=== PATIENT | female | born 1995 | race Caucasian/White ===

== ENCOUNTER 2018-06-03 20:37 | Outpatient (CLI) | payer OTHER ==
[~2018-06-03] VITALS: Ht 142.2 cm; Wt 58.1 kg
[2018-06-03 20:30] VITALS: Ht 142.2 cm; Wt 58.1 kg
[~2018-06-03 20:37] MED LIST: PREN1TAB79 PO
--- NOTE | 2018-06-03 20:40 | NSTRPT ---
NST Information Datetime Report Generated by CPN: 06/03/2018 20:40 Datetime: 05/19/2018 13:19 NST Information EGA: 37.1 Test Number: 3 Time on Monitor: 05/19/2018 13:58 Time off Monitor: 05/19/2018 14:20 NST Duration (Min): 22 Reason for NST: Low TSERING Test and Monitor Explained: Monitor Explained; Test Explained; Verbalized Understanding Pulse: 74 Resp: 18 SBP: 98 DBP: 56 Test Evaluation NST Interventions: None Patient States Movement: Present Contraction Frequency: X3-DENIES FEELING FHR Baseline : 145 Variability: Moderate 6-25bpm Accelerations: 15X15 Decelerations: None FHR Category: Category I NST Results: Reactive Comments: To u/s-ATILIO 11 CM, CEPHALIC Electronically Signed By E-Signature: with User ID: [id number] Datetime: 05/12/2018 13:54 NST Information EGA: 36.1 NST Duration (Min): 31 Datetime: 05/02/2018 14:16 NST Information EGA: 34.5 NST Duration (Min): 25
[2018-06-03 20:54] VITALS: BP 99/57; PULSE 79; RESP 18
[2018-06-03] MEDS ORDERED: FERR325T5 PO (21:07)
--- NOTE | 2018-06-04 00:11 | PN ---
Triage Information Date/Time 06/03/18 Reason for visit: antepartum test for low TSERING-A Weeks of Gestation 39w2d /Para Diabetes: none Hypertention: none Objective Vital Signs Date Temp Pulse Resp B/P (MAP) Pulse Ox O2 O2 Flow FiO2 Time Delivery Rate 06/03/18 98.3 79 18 99/57 (71) Room Air 20:54 Heart Rate: 140's Heart Rate Comments CAT I tracing Contractions: >10 Minutes Apart Exam /-3 Results/Medications Imaging Results BPP 8 ATILIO 9.5cm Disposition: Discharge Assessment/Plan A IUP 39w2d low TSERING-A P discharge today IOL on coming tuesday ELEONORA MEJIA MD Jun 04, 2018 00:11
--- NOTE | 2018-06-04 04:10 | TRIAGE ---
OB Triage Datetime Report Generated by CPN: 06/04/2018 04:10 Datetime: 06/03/2018 22:25 Vaginal Exam Dilatation (cms): 1.0 Effacement (%): 60 Station: -3 Exam By: arie chua RN Membrane Status: Intact Datetime: 06/03/2018 21:12 EGA: 39.2 Datetime: 06/03/2018 21:00 Time of Arrival: 06/03/2018 20:30 EGA: 39.2 Arrived By: Ambulatory Arrived From: Home Chief Complaint: came in with orders from Dr. Ashford for BPP, ATILIO, NST Movement: Present Contractions: Denies/Absent Rupture of Membranes: Denies Vaginal Bleeding: None Vaginal Discharge: Denies Recent Sexual Intercouse: Denies Abdominal Trauma: Not Applicable Patient Complaints: None Time Provider Notified: 06/03/2018 22:20 Provider Notified: DELSHAD Initial Plan: NST, BPP, ATILIO Datetime: 06/03/2018 20:54 Stage of : OB Triage Assessment Type: Triage Maternal Assessment Level of Consciousness: Fully Conscious DTR's/Clonus: DTRs 2+; No Clonus Headache: Denies Blurred Vision: No Respiratory Effort: Unlabored; Regular Rhythm; Equal Expansion Breath Sounds, Left: Clear and Equal Breath Sounds, Right: Clear and Equal Nausea/Vomiting: Denies RUQ Epigastric Pain: Denies Facial Edema: None Temperature Route: Oral Fall Risk Assessment History of Falling: (0) No Secondary Diagnosis: (0) No Ambulatory Aid: (0) Bedrest/Nurse Assist IV Therapy: (0) No Gait: (0) Normal/Bedrest/Immobile Mental Status: (0) Oriented to Own Ability Fall Score: 0 Fall Risk Score Definition: No Risk: No action required Pain Assessment Pain Scale: 0 Pain Presence: None/Denies Pain Type: N/A Datetime: 06/03/2018 20:50 Labor Evaluation Monitor Mode: External Heart Rate Monitor Mode: External US Datetime: 06/03/2018 20:47 Stage of : OB Triage
== END 2018-06-03 22:52 | disposition home or self-care (01) ==
LOC: L-D 20:37 → OBT 20:37
PROVIDERS: ATTEND Obstetrics & Gynecology
DX: O28.0 Abnormal hematological finding on antenatal screening of mother (principal); Z3A.39 39 weeks gestation of pregnancy
CPT/HCPCS: 76818; Z7500; G0463

== ENCOUNTER 2018-06-06 08:00 | Inpatient (IN) | payer OTHER ==
[~2018-06-06] VITALS: Ht 137.2 cm; Wt 51.6 kg
[~2018-06-06 08:00] MED LIST changes: +FERR325T5 PO
[2018-06-06 09:17] VITALS: Ht 137.2 cm; Wt 51.6 kg
[2018-06-06] MEDS: LACTATED RINGER'S 1,000 ML IV SCH ×4 (09:26→22:47)
[2018-06-06] MEDS ORDERED: OXYTOCIN 30 UNITS/LR 500 ML IV PRN (09:30)
[2018-06-06] MEDS ORDERED: METHYLERGONOVINE 0.2 MG INJ IM PRN (09:30)
[2018-06-06] MEDS ORDERED: CARBOPROST 250 MCG INJ IM PRN (09:30)
[2018-06-06] MEDS ORDERED: MISOPROSTOL 200 MCG TAB PR PRN (09:30)
[2018-06-06] MEDS ORDERED: LIDOCAINE 1% (MPF) 30 ML INJ INJ PRN (09:30)
[2018-06-06] MEDS ORDERED: OXYTOCIN 30 UNITS/LR 500 ML IV SCH ×3 (09:30→10:00)
[2018-06-06] MEDS ORDERED: BUTORPHANOL 2 MG INJ IV PRN (09:30)
[2018-06-06] MEDS: MISOPROSTOL 50 MCG CAPSULE PO SCH ×4 (09:59→22:00)
--- NOTE | 2018-06-06 10:17 | HP ---
Date/Time of Note Date/Time of Note DATE: 06/06/18 TIME: 10:15 OB - History Hx of Present Chief Complaint: induction of labor Estimated Due Date: Jun 08, 2018 : 2 Para: 1 Spontaneous : 0 Therapeutic : 0 Care: Good Care Ultrasounds: Normal mid trimester US Obstetrical Complications: None Medical Complications: None Past Family/Social History * Past Medical, Surgical, Family and Obstetric Histories reviewed from chart. GBS Status: Negative OB Admission Exam Physical Exam HEENT: WNL Heart: Rhythm Normal Lungs: Clear, Equal Abdomen: WNL Extremities: Normal Reflexes: Normal Cervical Dilatation: 1cm Effacement: 75% Station: -1 Membranes: Intact Heart Rate: 120's Accelerations: Accelerations Present Decelerations: No Decelerations Varibility: Moderate Last 72 hours Lab Results CBC & BMP 06/06/18 08:53 OB Assessment/Plan Reason for admission: induction of labor Plan: Induction Induction Method: per Misoprostol Protocol JACKI STEPHENS MD Jun 06, 2018 10:16
[2018-06-06] MEDS ORDERED: FENTAnyl 2MCG/ML-ROPIV 0.2% 100 ML ONE (22:20)
--- NOTE | 2018-06-06 22:20 | PREAC ---
Date/Time of Note Date/Time of Note DATE: 06/06/18 TIME: 22:18 Anesthesia Eval and Record Evaluation Time Pre-Procedure Interview DATE: 06/06/18 TIME: 22:18 Age 22 Sex female NPO: 8 hrs Preoperative diagnosis LABOR PAIN Planned procedure LABOR EPIDURAL Past Medical History Past Medical History: Includes : : (2), Para: (1), Gestational age: (39 5/7) Surgery & Anesthesia Issues No known issue Meds Anticoagulation: No Beta Beatriz within 24 hr: No Reason Beta Beatriz not given: Pt. not on B-Beatriz Reported Medications Ferrous Sulfate (Ferrous Sulfate) 325 Mg Tablet.dr, 325 MG PO 06/03/18 Vit W-Ca,Fe,FA(<1 mg) ( Vitamins) 1 Each Tablet, 1 EACH PO DAILY, TAB 07/05/15 Current Medications Lactated Ringer's 1,000 ml @ 125 mls/hr Q8H IV Last administered on 06/06/18at 21:38; Admin Dose 125 MLS/HR; Start 06/06/18 at 09:03 Butorphanol Tartrate (Stadol) 2 mg Q2H PRN IV .PAIN; Start 06/06/18 at 09:30 Lidocaine (Xylocaine 1% (Mpf)) 30 ml ONCE PRN INJ .EPISIOTOMY; Start 06/06/18 at 09:30 Oxytocin/Lactated Ringer's 500 ml @ 500 mls/hr ONCE POST IV ; Start 06/06/18 at 09:30 Oxytocin/Lactated Ringer's 500 ml @ 125 mls/hr POST IV ; Start 06/06/18 at 09:30 Oxytocin/Lactated Ringer's 500 ml @ 0 mls/hr ONCE PRN IV .VAGINAL BLEEDING; Start 06/06/18 at 09:30 Methylergonovine Maleate (Methergine) 0.2 mg ONCE PRN IM .VAGINAL BLEEDING; Start 06/06/18 at 09:30 Carboprost Tromethamine (Hemabate) 250 mcg ONCE PRN IM .VAGINAL BLEEDING; Start 06/06/18 at 09:30 Misoprostol (Cytotec) 1,000 mcg ONCE PRN MI .VAGINAL BLEEDING; Start 06/06/18 at 09:30 Misoprostol (Cytotec 50 Mcg Capsule) 50 mcg Q4H PO Last administered on 06/06/18at 18:14; Admin Dose 50 MCG; Start 06/06/18 at 10:00; Stop 06/07/18 at 06:01 Oxytocin/Lactated Ringer's 500 ml @ 0 mls/hr FOR INDUCTION IV ; Start 06/06/18 at 10:00 Meds reviewed: Yes Allergies Coded Allergies: No Known Allergy (Unverified , 06/06/18) Allergies Reviewed: Yes Labs/Studies Labs Reviewed: Reviewed by anesthesiologist Result Diagram: 06/06/18 0853 Laboratory Tests 06/06/18 08:53 Blood Bank Test 06/06/18 08:53 Antibody Screen NEGATIVE Blood Type O POSITIVE Rh Immune Globulin Candidate NO test: N/A Pre-procedure Exam Airway: Adequate mouth opening, Adequate thyromental dist Mallampati: Mallampati II Teeth: Normal Lung: Normal Heart: Normal ASA Physical Status ASA physical status: 2 Emergency: None Planned Anesthetic Neuraxial: Epidural Planned Pain Management Epidural Pre-operative Attestations Prior to commencing anesthesia and surgery, the patient was re-evaluated, there was verification of: *The patient's identity *The results of appropriate recent lab work and preoperative vital signs *The above evaluation not changing prior to induction *Anesthetic plan, risk benefits, alternative and complications discussed with patient/family; questions answered; patient/family understands, accepts and wishes to proceed. Juan Diego Cerna M.D. Jun 06, 2018 22:20
--- NOTE | 2018-06-06 22:49 | PAC ---
Date/Time of Note Date/Time of Note DATE: 06/06/18 TIME: 22:49 Post-Anesthesia Notes Post-Anesthesia Note Last documented vital signs HE;77 RR 14 BP 117/68 TEMP;98.2 Activity: WNL Respiratory function: WNL Cardiovascular function: WNL Mental status: Baseline Pain reasonably controlled: Yes Hydration appropriate: Yes Nausea/Vomiting absent: Yes Juan Diego Cerna M.D. Jun 06, 2018 22:49
[2018-06-06] MEDS ORDERED: NALOXONE (0.4 MG/ML) INJ IV PRN (23:00)
[2018-06-06] MEDS ORDERED: DIPHENHYDRAMINE 50 MG INJ IV PRN (23:00)
[2018-06-06] MEDS ORDERED: ONDANSETRON 4 MG INJ IV PRN (23:00)
[2018-06-06] MEDS ORDERED: FENTAnyl 2MCG/ML-ROPIV 0.2% 100 ML BAG EPI SCH (23:00)
[2018-06-06] MEDS ORDERED: TRIMETHOBENZAMIDE 100 MG/ML VIAL IM PRN (23:00)
--- NOTE | 2018-06-07 00:39 | LDN ---
Date/Time of Note Date/Time of Note DATE: 06/07/18 TIME: 00:36 Delivery Summary Weeks of Gestation 39 weeks and 6 days Placenta Delivered: Spontaneously Meconium: none Episiotomy: No Laceration repair: Second degree perineal laceration repaired with 3-0 Vicryl and 3-0 chromic. Anesthesia type: Epidural Estimated blood loss: 300 Sponge & Needle done & correct: Yes All needle counts correct: Yes Any foreign bodies felt in the: No Delivery Information Sex Infant Sex: female Apgars 1 Minute: 8 5 Minute: 9 Suctioning Nose & mouth suctioned at tiffanie: No Delee suction performed: No Umbilical Cord Umbilical cord with: 3 Vessels Cord presentations: no nuchal cord Cord Blood was obtained: Yes Mother & Baby Disposition Disposition Mom & Baby to Maternity; Good: Yes JACKI STEPHENS MD Jun 07, 2018 00:39
[2018-06-07 03:00] VITALS: BP 107/63; PULSE 79; RESP 19
[2018-06-07] MEDS ORDERED: HYDROCODONE/APAP (5/325) TAB PO PRN (03:30)
[2018-06-07] MEDS ORDERED: CARBOPROST 250 MCG INJ IM PRN (03:30)
[2018-06-07] MEDS ORDERED: MISOPROSTOL 200 MCG TAB PR PRN (03:30)
[2018-06-07] MEDS ORDERED: METHYLERGONOVINE 0.2 MG INJ IM PRN (03:30)
[2018-06-07] MEDS ORDERED: ACETAMINOPHEN 325 MG TAB PO PRN (03:30)
[2018-06-07] MEDS ORDERED: WITCH HAZEL/GLYCERIN PAD PR PRN (03:30)
[2018-06-07] MEDS ORDERED: OXYTOCIN 30 UNITS/LR 500 ML IV PRN (03:30)
[2018-06-07] MEDS ORDERED: BENZOCAINE 20% 56 ML SPRAY TOP PRN (03:30)
[2018-06-07] MEDS ORDERED: DIBUCAINE 1% 30 GM OINT TOP PRN (03:30)
[2018-06-07 04:00] VITALS: BP 110/69; PULSE 81; RESP 19
[2018-06-07] MEDS: LACTATED RINGER'S 1,000 ML IV* SCH ×2 (04:43→11:22)
[2018-06-07] MEDS: IBUPROFEN 600 MG TAB PO SCH ×4 (05:38→23:46)
[2018-06-07 08:00] VITALS: BP 96/51; PULSE 76; RESP 18
[2018-06-07] MEDS: SENNA/DOCUSATE NA (8.6MG/50MG) TAB PO SCH ×2 (09:35→21:25)
[2018-06-07 16:08] VITALS: BP 91/53; PULSE 80; RESP 18
[2018-06-07 19:45] VITALS: BP 89/51; PULSE 83; RESP 18
[2018-06-08 04:04] VITALS: BP 89/53; PULSE 75; RESP 18
[2018-06-08] MEDS: IBUPROFEN 600 MG TAB PO SCH ×4 (05:40→23:46)
[2018-06-08 08:00] VITALS: BP 109/72; PULSE 72; RESP 18
[2018-06-08] MEDS: SENNA/DOCUSATE NA (8.6MG/50MG) TAB PO SCH ×2 (09:27→21:33)
[2018-06-08 16:00] VITALS: BP 89/47; PULSE 71; RESP 16
--- NOTE | 2018-06-08 18:50 | DS ---
Date/Time of Note Date/Time of Note DATE: 06/08/18 TIME: 18:50 Obstetrical Discharge Record Final Diagnosis Final Diagnosis: Term delivered Vaginal Delivery Obstetrical Delivery: Spontaneous Complications Induction: Yes Condition on Discharge Physical Assessment Voiding: Yes Bowel Movement: Yes Breast: Soft, non-tender, Filling Fundus: Firm Calf Tenderness: No Patient Condition: Stable JACKI STEPHENS MD Jun 08, 2018 18:50
[2018-06-08 19:30] VITALS: BP 98/50; PULSE 72; RESP 18
[2018-06-09 04:01] VITALS: BP 94/49; PULSE 87; RESP 18
[2018-06-09] MEDS: IBUPROFEN 600 MG TAB PO SCH ×2 (05:39→11:34)
[2018-06-09 08:00] VITALS: BP 108/62; PULSE 77; RESP 18
[2018-06-09] MEDS ORDERED: DIPHTH/TET/ACEL PERTUSS (ADULT) 0.5 ML VIAL IM* ONE (09:00)
[2018-06-09] MEDS: SENNA/DOCUSATE NA (8.6MG/50MG) TAB PO SCH (09:14)
--- NOTE | 2018-06-10 14:09 | DELSUM ---
Delivery Summary A-C Datetime Report Generated by CPN: 06/10/2018 14:09 DELIVERY PERSONNEL Greens Keeper: Dries, Gabriel MATERNAL INFORMATION Delivery Anesthesia: Epidural Medications in Delivery: LR WITH 30 UNITS PITOCIN Delivery QBL (ml): 300 Placenta Cultured: No Maternal Complications: Other Other Maternal Complications: LOW PAPPA LABOR SUMMARY EDC: 06/08/2018 00:00 No. Babies in Womb: 0 Attempted: No Labor Anesthesia: Epidural LABOR INFORMATION Reason for Induction: Other Reason for Induction- Other: LOW PAPPA Onset of Labor: 06/06/2018 19:08 Complete Dilatation: 06/06/2018 23:50 Cervical Ripening Agents: Cytotec @ (Annotations: CYTOTEC DOSE #4 HELD DUE TO CONTRACTION PATTERN.) Oxytocin: N/A Group B Beta Strep: Negative Antibiotics # of Doses: 0 Steroids Given: None Reason Steroids Not Administered: Not Applicable MEMBRANES Membranes Rupture Method: Spontaneous Rupture of Membranes: 06/06/2018 23:28 Length of Rupture (hr): 0.62 Amniotic Fluid Color: Clear Amniotic Fluid Amount: Moderate Amniotic Fluid Odor: None STAGES OF LABOR Stage 1 hr: 4 Stage 1 min: 42 Stage 2 hr: 0 Stage 2 min: 15 Stage 3 hr: 0 Stage 3 min: 3 Total Time in Labor hr: 5 Total Time in Labor min: 0 VAGINAL DELIVERY Laceration Extension: Second Degree Laceration Type: Perineal Laceration Repair: Yes Initial Vag Sponge Count: 10 Final Vag Sponge Count: 10 Initial Vag Sharps Count: 3 Final Vag Sharps Count: 3 Sponge Count Correct: Yes; Vaginal Sweep Performed Sharps Count Correct: Yes BABY A INFORMATION Infant Delivery Date/Time: 06/07/2018 00:05 Method of Delivery: Vaginal Born in Route : No : N/A Forceps: N/A Vacuum Extraction: N/A Shoulder Dystocia : N/A SHOULDER DYSTOCIA BABY A Infant Delivery Date/Time: 06/07/2018 00:05 PRESENTATION/POSITION BABY A Presentation: Cephalic Cephalic Presentation: Vertex Vertex Position: Left Occipital Anterior Breech Presentation: N/A PLACENTA INFORMATION BABY A Placenta Delivery Time : 06/07/2018 00:08 Placenta Method of Delivery: Spontaneous Placenta Status: Delivered SCORES BABY A Heart Rate 1 min: >100 bpm Resp Effort 1 min: Good Cry Reflex Irritability 1 min: Cough/Sneeze/Pulls Away Muscle Tone 1 min: Active Motion Color 1 min: Blue/Pale Resuscitation Effort 1 min: Tactile Stimulation; Oxygen SCORE 1 MIN: 8 Heart Rate 5 min: >100 bpm Resp Effort 5 min: Good Cry Reflex Irritability 5 min: Cough/Sneeze/Pulls Away Muscle Tone 5 min: Active Motion Color 5 min: Body Rewey, Extremit Blue Resuscitation Effort 5 min: Tactile Stimulation; Oxygen SCORE 5 MIN: 9 INFANT INFORMATION BABY A Gestational Age at Delivery: 39.5 Gestational Status: Full Term- 39- 40.6 Weeks Infant Outcome : Liveborn Condition : Stable Sex: Female IDENTIFICATION/MEDS BABY A ID Band Number: [id number] ID Band Location: Right Leg; Left Arm Sensor Applied: Yes Sensor Number: [id number] Sensor Location : Cord Clamp Vitamin K Given : Not Given Erythromycin Given: Not Given WEIGHT/LENGTH BABY A Infant Birthweight (gm): 3045 Weight (lb): 6 Weight (oz): 11 Length (in): 19.00 Length (cm): 48.26 CORD INFORMATION BABY A No. Cord Vessels: 3 Nuchal Cord : N/A Cord Blood Taken: Yes Infant Suction: Mouth; Nose ASSESSMENT BABY A Infant Complications: Multiple Variable Decels Physical Findings at Delivery: Within Normal Limits Infant Respirations: Appears Normal Cinema Or Theatre Manager/ALS Called : Yes Infant Care By: SHAUNNA Bailey RN Transferred To: Remains with Mother
== END 2018-06-09 13:50 | disposition home or self-care (01) | DRG 807 ==
LOC: L-D 08:25 → PP1 06-07 02:56
PROVIDERS: ADMIT Obstetrics & Gynecology; ATTEND Obstetrics & Gynecology
PROC: 10E0XZZ Delivery of Products of Conception, External Approach (ICD-10-PCS; principal; 2018-06-07)
PROC: 0KQM0ZZ Repair Perineum Muscle, Open Approach (ICD-10-PCS; 2018-06-07)
DX: O70.1 Second degree perineal laceration during delivery (principal); Z37.0 Single live birth; Z3A.39 39 weeks gestation of pregnancy
CPT/HCPCS: 62322; 76815; 85025; 85610; 85730; 86592; 86850; 86900; 86901; 99464; A4310; J0595; J2590; J3010; J7120